=== PATIENT | male | born 1960 | race Caucasian/White ===

== ENCOUNTER 2022-05-21 08:22 | Inpatient (IN) ==
--- NOTE | 2022-04-24 10:15 | PAT Medication Instructions ---
Medication Instructions Date of Service April 24, 2022 Home Medications Medication Instructions Recorded nortriptyline 10 mg capsule 20 mg PO HS #180 caps 03/04/22 tramadol 50 mg tablet 50 mg PO TID #90 tabs 04/18/22 Medical Marijuana 1 dose PO HS PRN Pain acetaminophen 500 mg tablet 500 mg PO Q6H PRN Pain cholecalciferol (vitamin D3) 25 mcg (1,000 unit) tablet (Vitamin D3) 25 mcg PO QAM gabapentin 300 mg capsule 300 mg PO TID melatonin 10 mg tablet 10 mg PO HS diclofenac sodium 1 % topical gel (Voltaren Arthritis Pain) 2 g topical QID nortriptyline 10 mg capsule 20 mg PO HS tramadol 50 mg tablet 50 mg PO TID meloxicam 7.5 mg tablet 7.5 mg PO QAM ASK your surgeon for instructions diclofenac sodium 1 % topical gel (Voltaren Arthritis Pain) 2 g topical QID meloxicam 7.5 mg tablet 7.5 mg PO QAM ASK your prescriber and surgeon nortriptyline 10 mg capsule 20 mg PO HS DO NOT take the morning of surgery cholecalciferol (vitamin D3) 25 mcg (1,000 unit) tablet (Vitamin D3) 25 mcg PO QAM Take morning of surgery With a small sip of water, OTHERWISE NOTHING TO EAT OR DRINK AFTER MIDNIGHT: acetaminophen 500 mg tablet 500 mg PO Q6H PRN Pain (if needed) gabapentin 300 mg capsule 300 mg PO TID tramadol 50 mg tablet 50 mg PO TID Take evening before surgery Medical Marijuana 1 dose PO HS PRN Pain (if needed) acetaminophen 500 mg tablet 500 mg PO Q6H PRN Pain (if needed) gabapentin 300 mg capsule 300 mg PO TID melatonin 10 mg tablet 10 mg PO HS tramadol 50 mg tablet 50 mg PO TID Other Notes If you have any questions please call us at [phone] or [phone] or [phone] or [phone]
--- NOTE | 2022-05-02 15:16 | Anesthesiology Consultation ---
Date of Service May 02, 2022 Assessment & Plan (1) Encounter for pre-operative examination: - COVID screening: Per assessment on 05/02: No known COVID-19 positive contacts or current COVID-19 related symptoms. Travel screen negative. Patient vaccinated. At surgeon discretion if preop Covid testing being done. - Patient acceptable risk for surgery pending surgeon-ordered PCP preop evaluation ([facility], appt 05/13). Chart Review Chart Review: Patient seen in Pre Admission Testing Teaching & Discussion Pre-Anesthesia Teaching/Discussion Notes: Instructed NPO after midnight before surgery,except medications with 15 cc of water. Medication instructions provided according to the PAT guidelines. History Surgery Operation Date: 05/21/22 07:45 Proposed Procedures p L3-L4 Decompression and Fusion, L5-S1 Hardware Removal with Attachment to T1 Hardware Spinal Cord Monitoring - Raji Mock, Height/Weight Height: 5 ft 2 in Weight: 58.3 kg Allergies Allergy/AdvReac Type Severity Reaction Status Date / Time cat dander Allergy Unknown Sneezing Verified 05/02/22 15:16 No Known Drug Allergies Allergy Unknown Verified 04/23/22 13:31 DOGS Allergy Unknown Sneezing, Uncoded 05/02/22 15:16 eye watering Medications Home Medications Medication Instructions Recorded Confirmed Last Taken Medical Marijuana 1 dose PO HS PRN Pain 02/08/21 04/23/22 02/13/21 acetaminophen 500 mg tablet 500 mg PO Q6H PRN Pain 02/08/21 04/23/22 02/13/21 cholecalciferol (vitamin D3) 25 25 mcg PO QAM 02/08/21 04/23/22 02/13/21 mcg (1,000 unit) tablet (Vitamin D3) gabapentin 300 mg capsule 300 mg PO TID 02/08/21 04/23/22 02/14/21 06:30 melatonin 10 mg tablet 10 mg PO HS 02/08/21 04/23/22 02/13/21 diclofenac sodium 1 % topical gel 2 g topical QID 02/18/22 04/23/22 Unknown (Voltaren Arthritis Pain) nortriptyline 10 mg capsule 20 mg PO HS #180 caps 03/04/22 04/23/22 Unknown tramadol 50 mg tablet 50 mg PO TID #90 tabs 04/18/22 04/23/22 Unknown meloxicam 7.5 mg tablet 7.5 mg PO QAM 04/23/22 04/23/22 Unknown Past Medical History Medical History Chronic back pain Lumbar stenosis Spondylolysis Exercise / Class Metabolic Activity II 4-5 Yardwork/Stairs/Walk up hill (one FS (no CP, no SOB)) Past Family History Family History Father Prostate cancer Diabetes Mother Heart disease Brother Myocardial infarction Denies family history of Breast cancer Lung cancer Colorectal cancer Past Surgical History Surgical History History of bunionectomy of left great toe History of colonoscopy History of joint replacement left middle finger History of lumbar spinal fusion L1-L2, L5-S1 History of thoracic spinal fusion History of tooth extraction History of total hip arthroplasty x2 right, x4 left Hx of LASIK Past Anesthesia History No Hx of Anesthesia Complications and No Family Hx of Anesthesia Complications History of PONV No Hx of PONV and No Hx of Motion Sickness Social History Smoking Status: Never smoker Do You Dip or Chew Tobacco: No Hx Alcohol Use: Yes Alcohol type: beer alcohol intake frequency: 3 or more drinks per day (3-4 beers/day (evening)) Hx Substance Use: Yes substance use type: marijuana (Medical marijuana (no recent use)) Review of Systems Rare, intermittent episodes of "tachycardia, heart racing" - noted for the past several years. No recent issues/changes. Patient denies chest pain, shortness of breath, dyspnea on exertion, fever, chills, cough, wheezing. Physical Exam Vital Signs VITALS BP 130/83 P 98 TEMP 98.1 SP02 99%RA RESP 18 PHYSICAL Full cervical extension range of motion. Full TMJ range of motion. TMD 3.5 finger breaths Mallampati Score 2 Dentition: intact, upper front caps Lungs: clear throughout to auscultation Cardiac: regular rate and rhythm, no murmurs noted Spine: normal Carotid arteries: negative bruit Extremities: no edema Short neck Lab Results Anesthesia Preop Results Results Anesthesia Widget: WBC 5.02 K/ul (4.8-10.8) 05/02/22 Hgb 13.6 g/dl (14.0-18.0) L 05/02/22 Hct 40.2 % (40.1-51.0) 05/02/22 Plt 317 K/uL (130-400) 05/02/22 Na 136 mmol/L (136-145) 05/02/22 K 4.4 mmol/L (3.5-5.1) 05/02/22 Cl 103 mmol/L (98-107) 05/02/22 CO2 28 mmol/L (21-32) 05/02/22 BUN 17 mg/dl (6-23) 05/02/22 Creat 0.93 mg/dl (0.6-1.4) 05/02/22 Glucose Level 91 mg/dl (70-99(Fasting)) 05/02/22 PT 10.3 Seconds (9.0-12.0) 05/02/22 PTT 30.0 Seconds (21.0-31.0) 05/02/22 INR 1.0 (0.9-1.1) 05/02/22 Urine Color Yellow 05/02/22 Urine Appearance Clear (Clear) 05/02/22 Urine pH 6.0 (4.5-7.5) 05/02/22 Urine Specific [place] 1.013 (1.000-1.030) 05/02/22 Urine Protein Negative (Negative) 05/02/22 Urine Glucose (UA) Negative (Negative) 05/02/22 Urine Ketones Negative (Negative) 05/02/22 Urine Blood Negative (Negative) 05/02/22 Urine Nitrite Negative (Negative) 05/02/22 Urine Bilirubin Negative (Negative) 05/02/22 Urine Urobilinogen Negative (Negative) 05/02/22 Urine Leukocyte Esterase Negative (Negative) 05/02/22 Blood Type A Positive 05/02/22 Antibody Screen NEGATIVE 05/02/22 Testing Electrocardiogram Date: 05/02/22 NSR at 94bpm. Chest X-Ray Date: 05/02/22 FINDINGS: Posterior fixation hardware is seen in the thoracolumbar spine. The c ardiomediastinal silhouette is normal. The lungs are clear. No evidence of pleural effusion or pneumothorax. IMPRESSION: No acute chest disease. COVID-19 Risk Screen Screening Information COVID-19 Screen Date: 05/02/22 Exposure 21 Days Family/Household +COVID Last 21 Days: No Exposure 10 Days Any COVID Exposure Last 10 Days: No Symptoms Last 10 Days Experienced COVID Sx Last 10 Days: No + COVID 0-90 Days COVID + in Last 0-90 Days: No
[~2022-05-21 08:22] MED LIST: ACETAMINOPHEN 500 MG TAB PO SCH; CeleBREX 200 MG CAP PO SCH; GABAPENTIN 600 MG DOSE PO SCH; LR 15ML/HR IV SCH; SUGAMMADEX SODIUM 200 MG/2 ML VIAL IV ONE; ceFAZolin 2000MG 2,000 MG/15 ML SYR IV SCH
[2022-05-21] MEDS ORDERED: MIDAZOLAM HCL 1 MG/ML 2ML VIAL ONE (09:00)
[2022-05-21] MEDS ORDERED: fentaNYL citrate 100 MCG/2 ML VIAL ONE (09:00)
[2022-05-21] MEDS ORDERED: LIDOCAINE 2% MPF LOCAL 5 ML VIAL INFIL ONE (09:01)
[2022-05-21] MEDS ORDERED: ROCURONIUM BROMIDE 10 MG/ML 5 ML VIAL IV ONE ×6 (09:01→12:05)
[2022-05-21] MEDS ORDERED: LARYING-O-JET KIT (LTA) ONE (09:01)
[2022-05-21] MEDS ORDERED: PROPOFOL IV EMULSION 10 MG/ML 20 ML VIAL IV ONE (09:01)
[2022-05-21] MEDS ORDERED: HYDROmorphone INJ 2 MG/ML SYR/VIAL IV PRN (09:08)
[2022-05-21] MEDS ORDERED: fentaNYL citrate 100 MCG/2 ML VIAL IV PRN (09:08)
[2022-05-21] MEDS ORDERED: ePHEDrine sulfate 50 MG/ML AMP IV PRN (09:08)
[2022-05-21] MEDS ORDERED: ATROPINE SULFATE 0.1 MG/ML 10ML SYR IV PRN (09:08)
[2022-05-21] MEDS ORDERED: ONDANSETRON INJ 2 MG/ML 2 ML VIAL IV PRN ×2 (09:08→14:15)
[2022-05-21] MEDS ORDERED: KETAMINE 50 MG/5 ML SYRINGE ONE (09:17)
--- NOTE | 2022-05-21 09:30 | History & Physical Bridge Note ---
Date of Service May 21, 2022 History & Physical Bridge Note I have examined the patient, reviewed the History & Physical and in the interval since the performance of the History & Physical I have noted the following changes of clinical significance: no changes noted
--- NOTE | 2022-05-21 09:32 | History & Physical Report ---
Date of Service May 21, 2022 Assessment & Plan (1) Chronic back pain: Plan: L3-L4 decompression and fusion, L5-S1 hardware removal, possible L4-L5 History of Present Illness Chief Complaint: Chronic back pain Primary Care Provider: YVAN Servin 62-year-old male presents with current persistent back pain after failing course of nonoperative care is here for surgical invention. Allergies Allergy/AdvReac Type Severity Reaction Status Date / Time cat dander Allergy Unknown Sneezing Verified 05/21/22 08:40 No Known Drug Allergies Allergy Unknown Verified 05/21/22 08:40 DOGS Allergy Unknown Sneezing, Uncoded 05/21/22 08:40 eye watering Home Medications Medication Instructions Recorded Confirmed Type Medical Marijuana 1 dose PO HS PRN Pain 02/08/21 05/21/22 History acetaminophen 500 mg tablet 500 mg PO Q6H PRN Pain 02/08/21 05/21/22 History cholecalciferol (vitamin D3) 25 25 mcg PO QAM 02/08/21 05/21/22 History mcg (1,000 unit) tablet (Vitamin D3) gabapentin 300 mg capsule 300 mg PO TID 02/08/21 05/21/22 History melatonin 10 mg tablet 10 mg PO HS 02/08/21 05/21/22 History diclofenac sodium 1 % topical gel 2 g topical QID 02/18/22 05/21/22 History (Voltaren Arthritis Pain) nortriptyline 10 mg capsule 20 mg PO HS #180 caps 03/04/22 05/21/22 Rx meloxicam 7.5 mg tablet 7.5 mg PO QAM 04/23/22 05/21/22 History tramadol 50 mg tablet 50 mg PO TID #90 tabs 05/15/22 05/21/22 Rx Past Med/Surg History Medical History Chronic back pain Lumbar stenosis Spondylolysis Surgical History History of bunionectomy of left great toe History of colonoscopy History of joint replacement History of lumbar spinal fusion History of thoracic spinal fusion History of tooth extraction History of total hip arthroplasty Hx of ALBERTO Family History Father Prostate cancer Diabetes Mother Heart disease Brother Myocardial infarction Denies family history of Breast cancer Lung cancer Colorectal cancer Social History Smoking Status: Never smoker Second Hand Exposure: No; Do You Dip or Chew Tobacco: No; Hx Alcohol Use: Yes Alcohol type: beer Hx Substance Use: Yes Substance Use Type Other:: has card, for HS Preferred Language: Pashto Communication Ability: Effective International Nurse Required: No Beliefs That Will Affect Care: None marital status: Current Living Situation: Spouse current occupational status: retired How many Children do You have: 2 Other Information That Helps Us Care for You: No Feels Safe at Home: Yes Safety Concerns: Feels Safe At This Time Childhood Exposure to Second-Hand Smoke: No caffeine: Yes Dental Care, Regularly: Yes Physical Activity Frequency: Does not Exercise Seatbelt Use: always Sunscreen Use: Yes Assistive Devices: None Physical Exam Physical Exam: Patient is alert and oriented Heart regular rhythm Lungs clear Results & Data Results & Data ([facility]) Vital Signs (Past 12 Hours) Vital Signs Temp Pulse Resp BP Pulse Ox O2 Del Method 05/21/22 08:43 36.8 C 80 20 142/92 H 98 Room Air
[2022-05-21] MEDS ORDERED: ceFAZolin 330 MG/ML 1 GM VIAL ONE (09:43)
[2022-05-21] MEDS ORDERED: BUPIVACAINE/EPINEPHRINE 0.25% 1:200,000 30 ML VIAL ONE (09:43)
[2022-05-21] MEDS ORDERED: ePHEDrine sulfate 50 MG/ML AMP ONE (09:48)
[2022-05-21] MEDS ORDERED: SODIUM CHLORIDE 0.9% INJ 10 ML VIAL ONE (09:48)
[2022-05-21] MEDS ORDERED: ALBUMIN HUMAN 5% 12.5 GM/250 ML VIAL IV ONE (10:14)
[2022-05-21] MEDS ORDERED: HYDROmorphone INJ 2 MG/ML SYR/VIAL ONE (10:49)
[2022-05-21] MEDS ORDERED: PHENYLEPHRINE HCL 10 MG/ML VIAL ONE ×2 (10:49→12:05)
[2022-05-21] MEDS ORDERED: VASOPRESSIN 20 UNIT/ML VIAL ONE (11:39)
[2022-05-21] MEDS ORDERED: KETOROLAC 30 MG/ML VIAL ONE (12:43)
[2022-05-21] MEDS ORDERED: ONDANSETRON INJ 2 MG/ML 2 ML VIAL ONE ×2 (12:44)
[2022-05-21] MEDS ORDERED: DEXAMETHASONE SOD INJ 4 MG/ML VIAL ONE (12:44)
[2022-05-21] MEDS ORDERED: FLOSEAL HEMOSTATIC MATRIX 10ML TOP ONE (12:48)
--- NOTE | 2022-05-21 12:54 | Operative Report ---
Post Operative Report Pre & Post Diagnosis Operation Date: 05/21/22 10:05 Pre-Op Diagnosis: Spinal Stenosis, Lumbar Region with Neurogenic Claudication Post-Op Diagnosis: Spinal Stenosis, Lumbar Region with Neurogenic Claudication I identified the patient and participated in the time-out.: Yes Procedure Operation Date: 05/21/22 10:05 Actual Procedures #1 removal of posterior instrumentation pedicle screws at L2 L5 and S1. #2 exploration of fusion L2-L3 and L5-S1. #3 lumbar decompression bilateral medial facetectomies and foraminotomies L3-L4 and L4-L5. #4 posterior spinal fusion L3-L4 L4-L5 #5 placement posterior instrumentation L3-S1 including connectors. #6 interbody fusion L3-L4 L4-L5. #7 placement of Spira 12 x 26 mm cage at L3-L4 and 14 x 26 mm cage at L4-5. #8 placement locally harvested morselized autograft in the posterior gutters. #9 placement infuse collagen sponge, V toss in the posterior gutters and I factor in the body space. Surgeon Raji Mock, Canal Boat [employer] Michelle Cross Estimated Blood Loss 450 Findings Consistent with Post-Op Diagnosis Specimens None Indications This is a 8-year-old male known to me the presents above-mentioned diagnosis after failed course of nonoperative care is here for surgical invention. Description of Procedure Patient was met with identified informed consent obtained. Patient was then taken to the operative suite underwent patient placed in a prone position the [facility] top Ruben frame. All bony prominences well-padded eyes inspected to ensure no external pressure placed upon them. This point the lumbar spine was prepped and draped no sterile fashion. Sharp dissection with assistance of Bovie cautery from down to and exposing the rods at L2-L3 lamina and transverse processes of L3-L4 and instrumentation L5-S1 bilaterally. Then proceeded move the hardware bilaterally L5-S1 explore the fusion mass noting it to be mature and intact. He also removed the pedicle screw of L3 bilaterally explore the fusion mass at L2-L3 bilaterally noting it to be intact. Then performed a complete laminectomy of L4 and L3 including bilateral medial facetectomies and foraminotomies addressing severe spinal stenosis. Pedicle screws then placed in L4-L5 and S1 levels and a ana placed connected to the superior construct with connectors. By way of a transfemoral approach and right complete discectomy of L4-L5 was then performed endplates curetted to subcortical bleeding bone and a 14 x 26 mm spiral cage with I factor tapped in position. Then proceeded L3-L4 and again by way of a transforaminal approach and right complete discectomy performed endplates curetted to subcortically bone and a 12 x 26 mm spiral cage with I factor tapped in position. The rods were then locked into final position bilaterally. The transverse processes of L3-L4-L5 were then burred to subcortically bone. Infuse collagen sponge from mass graft locally harvested morselized autograft was placed in the posterior gutters. 15 round NICOLLE drain inserted. The incision was then closed with 1 Vicryl the fascia 2-0 Vicryl subcutaneously and 4 Monocryl for final skin closure. Steri-Strips dressings placed. Patient awakened taken to PACU in stable condition. Please note spinal cord monitoring was utilized at the procedure no changes noted. Lastly Michelle Cross was present out the entire surgeon while the patient positioning complex portion of the surgery and final skin closure. I attest to the content of the Intraoperative Record and any orders documented therein. Any exceptions are noted below.
--- NOTE | 2022-05-21 13:54 | Fluoroscopy Report ---
FL lumbar spine 2-3V CLINICAL HISTORY: L3-L4 DECOMPRESSION FUSION L5-S1 HW REMOVAL TECHNIQUE: 2 views were obtained with the C-arm in the OR with the above procedure. Total fluoroscopy time was 16.6 seconds. Radiation dose was 4.33 mGy. Comparison: Comparison is made to lumbar spine CT 09/21/2021 FINDINGS/IMPRESSION: Intraoperative images were obtained of L5-S1 hardware removal and discectomy and fusion of L3-L4. Please correlate with intraoperative fluoroscopy and operative report. ACT 112: Negative or not required by law. Electronically signed by: Clint Lopez M.D. 05/21/2022 1:52 PM
--- NOTE | 2022-05-21 14:02 | Anesthesiology Progress Note ---
Date of Service May 21, 2022 Anesthesia Post Procedure Vital Signs Vital Signs: Temp Pulse Pulse Resp BP Pulse Ox O2 Del Method 05/21/22 13:50 36.5 C 105 H 12 95/61 L 96 Room Air 05/21/22 13:40 101 H 18 100/66 96 Room Air 05/21/22 13:30 94 H 9 L 94/59 L 100 Oxymask 05/21/22 13:20 90 16 94/60 L 99 Oxymask 05/21/22 13:11 36.8 C 87 11 L 97/62 L 99 Oxymask 05/21/22 08:43 36.8 C 80 20 142/92 H 98 Room Air O2 Flow Rate 05/21/22 13:50 05/21/22 13:40 05/21/22 13:30 6 05/21/22 13:20 6 05/21/22 13:11 15 05/21/22 08:43 Pain Intensity Lower Medial Back: Pain Intensity: 3 Back: Pain Intensity: 2 Transfer of Care Handoff Completed per policy Notes Mental Status: alert / awake / arousable and participated in evaluation Patient Amnestic to Procedure: Yes Nausea / Vomiting: adequately controlled Pain: adequately controlled Airway Patency, RR, SpO2: stable & adequate BP & HR: stable & adequate Hydration State: stable & adequate Anesthetic Complications: no major complications apparent and Pt Satisfied with anesthetic care
[2022-05-21] MEDS ORDERED: SOD PHOSPHATE/SOD BIPHOSPHATE ENEMA 132 ML BTL PR PRN (14:15)
[2022-05-21] MEDS ORDERED: PROMETHAZINE HCL 12.5 MG in SODIUM CHLORIDE 0.9% 50 ML IV PRN (14:15)
[2022-05-21] MEDS ORDERED: DO NOT ADMINISTER PNEUMOCOCCAL VACCINE PRN (14:15)
[2022-05-21] MEDS ORDERED: ACETAMINOPHEN 1,000 MG/100 ML VIAL IV PRN (14:15)
[2022-05-21] MEDS ORDERED: hydrOXYzine HCl 25 MG TAB PO PRN (14:15)
[2022-05-21] MEDS ORDERED: METOCLOPRAMIDE HCL INJ 5 MG/ML 2 ML VIAL IV PRN (14:15)
[2022-05-21] MEDS ORDERED: HYDROmorphone INJ 1 MG/ML SYRINGE IV PRN (14:15)
[2022-05-21] MEDS ORDERED: DO NOT ADMINISTER FLU VACCINE PRN (14:15)
[2022-05-21] MEDS ORDERED: HYDROmorphone INJ 0.5 MG/0.5 ML SYR IV PRN (14:15)
[2022-05-21] MEDS ORDERED: bisacodyL 10 MG SUPP PR PRN (14:15)
[2022-05-21] MEDS ORDERED: LORazepam 0.5 MG TAB PO PRN (14:15)
[2022-05-21] MEDS ORDERED: ALUMINUM/MAGNESIUM SUSP 30 ML UDC PO PRN (14:15)
[2022-05-21] MEDS ORDERED: diphenhydrAMINE Capsule 25 MG CAP PO PRN (14:15)
[2022-05-21] MEDS ORDERED: NALOXONE HCL 0.4 MG/1 ML VIAL/CARP IV PRN (14:15)
[2022-05-21] MEDS ORDERED: MAGNESIUM HYDROXIDE SUSP 30 ML UDC PO PRN (14:15)
[2022-05-21] MEDS ORDERED: ONDANSETRON 4 MG OD TAB PO PRN (14:15)
[2022-05-21] MEDS ORDERED: FAMOTIDINE 20 MG TAB PO PRN (14:15)
[2022-05-21] MEDS ORDERED: LORazepam 2 MG/1 ML VIAL IV PRN ×2 (14:15→15:34)
[2022-05-21] MEDS: LACTATED RINGER'S 1,000 ML IV SCH ×3 (14:35→23:48)
--- NOTE | 2022-05-21 15:14 | Hospitalist Consultation ---
Date of Consultation May 21, 2022 Assessment & Plan (1) S/P lumbar spinal fusion: -Patient is currently afebrile, hemodynamically stable, and stable on RA -Pain control, perioperative abx, IV fluids, and DVT PPX per the primary team -Patient currently in mod-severe pain at the time of the consult, spoke to his nurse after evaluating the patient to ask them to give him ordered pain regimen -Switched prn famotidine to scheduled for stress ulcer prophylaxis -Agree with AM CBC and BMP (2) Tachycardia: -Patient noted to be tachycardic with HR in the low 100's at the time of the consult, blood pressure is currently stable at 102/65 -Patient is asymptomatic and notes a history of SVT but has never needed medication prior, patient also drinks at least 2-3 beers nightly, last drink was last night around 9-10 pm, could be a component of alcohol withdrawal -Did take his home gabapentin and tramadol this am so less liekly to be withdrawal from his chronic meds -Patient was noted to have an EBL of 450 cc so could be related to blood loss and soft BP's post op and also could be related to his current pain rating -Obtaining STAT CBC, CMP, and ECG for further evaluation -Upgraded the patient to med/tele for closer monitoring, will follow-up when available and monitor his HR when is pain is better controlled -He does not examine as volume overloaded, agree with continuing LR at 100 mL/hr for now (3) Alcohol use: -Reports 2-3 beers nighty and no history of withdrawal per the patient -Will start the at risk AWSS protocol to monitor for and treat any possible alcohol withdrawal at this time -Continue to monitor on tele Plan The patient was discussed with Dr. Moon at the time of the consult Supervising Physician Co-Signing Physician Notes Patient seen and examined, chart reviewed, case discussed with Miah Jean PA-C and I agree with the assessment and plan as above except as otherwise noted Labs and images reviewed Patient seen at bedside. Feels well, but does endorse that he is having intermittent pain in his low back which has been improved with oxycodone but worsens prior to dosing up to a 7/10. At time of bedside assessment feels it is tolerable, but worse as he just got oxycodone and has not yet kicked in. Does not feel a fast heart rate. Has had a history of SVT which she has been able to self terminate by holding breath. 2-3 drinks per night, last drink yesterday. Skin is warm and dry, is not diaphoretic. Agree with following for AWSS, was [id number] cc LR fluid bolus challenge and continued on maintenance fluids. Tachycardia most likely reactive, DDx includes withdrawal, blood loss, and pain. Suspect is reactive to pain with mild hypovolemia, will mucous membranes are tacky but not cracked. Agree with recommendations of management above. Lungs are clear to auscultation, no evidence of volume overload History of Present Illness Reason for Consultation: Post-op medical management Requesting Physician: Raji Mock DO Attending Physician: Dr. Ed Moon History of Present Illness Stevan is a 62 year old male with a PMH significant for chronic back pain with chronic back pain, multiple previous spinal procedures, and SVT who presented to the [facility] OR on 05/21/22 for scheduled L3-L4 decompensation and fusion and L5-S1 hardware removal with Dr. Mock. Per the operative report, EBL was listed as 450 cc, anesthesia and intra-operative complications were not listed in the report. Review of vitals signs since arrival this am shows blood pressures with systolics in the 90's but most recently a BP of 102/65. The patient has been noted to be tachycardic with heart rates in the low 100's, he has been afebrile, and stable on RA. No labs were available prior to the consult. At the time of the exam the patient was lying in bed and states that his back pain is "bad", he currently rates it as a 6-7/10. He denies any other complaints at this time including fever, chills, headache, changes in vision, hearing, taste, and smell, chest pain, SOB, abdominal pain, nausea, vomiting, and numbness in the lower extremities. When asked, he confirms that he has a history of intermittent SVT, he states that he was never start on medication due to it being intermittent and not severe. He does not use tobacco products but does drink 2-3 beers nightly, he denies previous history of withdrawal when he stops drinking, his last drink was last night around 9-10 pm. He did take his am Gabapentin and tramadol prior to coming to the Hospital. Please refer to Dr. Moon's attestation for any changes to the treatment plan. Allergies Allergy/AdvReac Type Severity Reaction Status Date / Time cat dander Allergy Unknown Sneezing Verified 05/21/22 08:40 No Known Drug Allergies Allergy Unknown Verified 05/21/22 08:40 DOGS Allergy Unknown Sneezing, Uncoded 05/21/22 08:40 eye watering Home Medications Medication Instructions Recorded Confirmed Type Medical Marijuana 1 dose PO HS PRN Pain 02/08/21 05/21/22 History acetaminophen 500 mg tablet 500 mg PO Q6H PRN Pain 02/08/21 05/21/22 History cholecalciferol (vitamin D3) 25 25 mcg PO QAM 02/08/21 05/21/22 History mcg (1,000 unit) tablet (Vitamin D3) gabapentin 300 mg capsule 300 mg PO TID 02/08/21 05/21/22 History melatonin 10 mg tablet 10 mg PO HS 02/08/21 05/21/22 History diclofenac sodium 1 % topical gel 2 g topical QID 02/18/22 05/21/22 History (Voltaren Arthritis Pain) nortriptyline 10 mg capsule 20 mg PO HS #180 caps 03/04/22 05/21/22 Rx meloxicam 7.5 mg tablet 7.5 mg PO QAM 04/23/22 05/21/22 History tramadol 50 mg tablet 50 mg PO TID #90 tabs 05/15/22 05/21/22 Rx oxycodone 5 mg tablet 5 mg PO Q6H PRN pain, severe #30 05/21/22 Rx tabs tramadol 50 mg tablet 50 mg PO Q6H PRN pain, moderate 05/21/22 Rx #30 tabs Patient History Medical History Chronic back pain Lumbar stenosis Spondylolysis Surgical History History of bunionectomy of left great toe History of colonoscopy History of joint replacement History of lumbar spinal fusion History of thoracic spinal fusion History of tooth extraction History of total hip arthroplasty Hx of ALBERTO Family History Father Prostate cancer Diabetes Mother Heart disease Brother Myocardial infarction Denies family history of Breast cancer Lung cancer Colorectal cancer Social History Smoking Status: Never smoker Second Hand Exposure: No; Do You Dip or Chew Tobacco: No; Hx Alcohol Use: Yes Alcohol type: beer Hx Substance Use: Yes Substance Use Type Other:: has card, for HS Preferred Language: Icelandic Communication Ability: Effective Air Traffic Systems Technician Required: No Beliefs That Will Affect Care: None marital status: Current Living Situation: Spouse current occupational status: retired How many Children do You have: 2 Other Information That Helps Us Care for You: No Feels Safe at Home: Yes Safety Concerns: Feels Safe At This Time Childhood Exposure to Second-Hand Smoke: No caffeine: Yes Dental Care, Regularly: Yes Physical Activity Frequency: Does not Exercise Seatbelt Use: always Sunscreen Use: Yes Assistive Devices: None Review of Systems Review of Systems: Denies current fever, chills, headache, changes in vision, hearing, taste, and smell, chest pain, SOB, cough, abdominal pain, nausea, vomiting, diarrhea, hematemesis, melena, dysuria, hematuria, and recent falls. All systems have been reviewed and are otherwise negative. Physical Exam Physical Exam: Physical Exam: General: In moderate distress due to low back pain, stated age, well- nourished, good hygiene HEENT: Normocephalic, atraumatic, no scleral icterus, pupils around round, symmetrical, and reactive to light, moist mucus membranes, trachea midline, no thyromegaly Chest/Pulm: No respiratory distress, symmetrical chest expansion, clear breath sounds throughout Cardiac: tachycardic rate, regular rhythm, no murmurs noted Abdomen: Negative for ascites and bruising, normoactive bowel sounds, soft, non-tender to palpation throughout Musculoskeletal: Patient currently with drain in place from the low back surgical site without signs of infection, Symmetrical and without signs of acute trauma, upper and lower extremities with full ROM, no atrophy, spasticity, or flaccidity Extremities: Radial, dorsalis pedis, and posterior tibial pulses are intact and symmetrical, no edema noted in the BL LE's Skin: Warm, dry, no rashes , lesions, or scars noted Neuro: Alert and oriented to person, place, month, year, and president, no focal defects, CN II-XII tested and intact, finger to nose test negative, no tremors noted Psych: Mild distress due to back pain, calm and cooperative during the exam Results & Data Results & Data ([facility]) Vital Signs (Past 12 Hours) Vital Signs Temp Pulse Pulse Resp BP Pulse Ox O2 Del Method 05/21/22 14:36 36.4 C L 101 H 14 116/66 96 Room Air 05/21/22 14:10 36.2 C L 109 H 14 99/56 L 95 Room Air 05/21/22 14:00 36.5 C 106 H 15 99/63 L 94 Room Air 05/21/22 13:50 105 H 12 95/61 L 96 Room Air 05/21/22 13:40 101 H 18 100/66 96 Room Air 05/21/22 13:30 94 H 9 L 94/59 L 100 Oxymask 05/21/22 13:20 90 16 94/60 L 99 Oxymask 05/21/22 13:11 36.8 C 87 11 L 97/62 L 99 Oxymask 05/21/22 08:43 36.8 C 80 20 142/92 H 98 Room Air O2 Flow Rate 05/21/22 14:36 05/21/22 14:10 05/21/22 14:00 05/21/22 13:50 05/21/22 13:40 05/21/22 13:30 6 05/21/22 13:20 6 05/21/22 13:11 15 05/21/22 08:43 ECG Additional Comments: Obtaining STAT ECG at the time of the consult PG Care Time/CCT Total # of Minutes Spent Total Time Spent with Patient: Total time spent is greater than 50% in coordination of care (as documented) at patient's floor/unit and/or counseling patient: Coding Level of Care Code Established Pt INP/OBS CONSULT LVL 5, 80 MIN Patient Type Established Medical Decision Making High Complexity Diagnoses S/P lumbar spinal fusion Z98.1 Tachycardia R00.0 Alcohol use Z78.9
[2022-05-21 15:55] LABS: Hematocrit (blood only) 32.1 % (40.1-51.0); Hemoglobin 10.8 g/dl (14.0-18.0); Mean Corpuscular Hemoglobin 31.1 pg (25.0-34.0); Mean Corpuscular Hgb Conc 33.6 g/dL (32.0-36.0); Mean Corpuscular Volume 92.5 fL (80.0-100.0); Platelet Count 223 K/uL (130-400); RDW Coefficient of Variation 12.8 % (11.5-14.5); RDW Standard Deviation 43.6 fL (36.4-46.3); Red Blood Count 3.47 M/uL (4.63-6.08); White Blood Count 10.07 K/ul (4.8-10.8)
[2022-05-21 16:02] LABS: Albumin Globulin Ratio 2.5 (0.9-2); Albumin Level 3.7 gm/dl (3.4-5.0); BUN Creatinine Ratio 15.6 (10-20); Bilirubin,Total 0.4 mg/dl (0.2-1.0); Calcium 8.3 mg/dl (8.5-10.1); Creatinine Clr Calc Pharmacy 78.8 ml/min; Est GFR (African American) 114.3 ml/min; Est GFR (Non-African American) 98.6 ml/min; Globulin 1.5 gm/dl (2.5-4.0); Potassium 4.3 mmol/L (3.5-5.1); Total Protein 5.2 gm/dl (6.0-8.3)
[2022-05-21] MEDS: GABAPENTIN 300 MG CAP PO SCH ×2 (16:10→20:01)
[2022-05-21 16:14] LABS: Basophils # (auto) 0.01 K/uL (0-0.2); Basophils % (auto) 0.1 %; Immature Granulocytes # (auto) 0.05 K/uL (0.00-0.02); Immature Granulocytes % (auto) 0.5 %; Lymphocytes # (auto) 0.29 K/uL (1.2-3.4); Lymphocytes % (auto) 2.9 %; Monocytes # (auto) 0.14 K/uL (0.24-0.82); Monocytes % (auto) 1.4 %; Neutrophils # (auto) 9.58 K/uL (1.4-6.5); Neutrophils % (auto) 95.1 %
[2022-05-21] MEDS: ceFAZolin 1000MG 1,000 MG/7.5 ML SYR IV SCH (17:50)
[2022-05-21] MEDS: FAMOTIDINE 20 MG TAB PO SCH (17:50)
--- NOTE | 2022-05-21 18:31 | Electrocardiogram Report ---
Test Reason : Blood Pressure : / mmHG Vent. Rate : 103 BPM Atrial Rate : 103 BPM P-R Int : 158 ms QRS Dur : 080 ms QT Int : 338 ms P-R-T Axes : 076 086 050 degrees QTc Int : 442 ms Sinus tachycardia Minimal voltage criteria for LVH, may be normal variant Borderline ECG When compared with ECG of 02-MAY-2022 15:37, No significant change was found Confirmed by Blas Schaeffer ([id number]) on 05/21/2022 6:30:37 PM Referred By: Raji Mock Confirmed By:Kurtis Schaeffer
[2022-05-21] MEDS: oxyCODONE HCL IR 5 MG TAB (IMMEDIATE RELEASE) PO PRN ×2 (19:48→23:47)
[2022-05-21] MEDS ORDERED: LACTATED RINGER'S 250 ML IV ONE (19:53)
[2022-05-21] MEDS: NORTRIPTYLINE HCL 10 MG CAP PO SCH (20:00)
[2022-05-21] MEDS: DOCUSATE SODIUM/SENNA 50/8.6MG TAB PO SCH (20:01)
[2022-05-21] MEDS: MELATONIN 3 MG TAB PO SCH (23:08)
[2022-05-22] MEDS ORDERED: LACTATED RINGER'S 1,000 ML IV ONE (01:37)
[2022-05-22] MEDS: ceFAZolin 1000MG 1,000 MG/7.5 ML SYR IV SCH (02:00)
[2022-05-22] MEDS: FAMOTIDINE 20 MG TAB PO SCH ×2 (05:10→17:24)
[2022-05-22] MEDS: POLYETHYLENE (MIRALAX) 17 GM PACK PO SCH ×3 (05:10→17:25)
[2022-05-22] MEDS: ACETAMINOPHEN 500 MG TAB PO PRN ×2 (05:30→15:21)
--- NOTE | 2022-05-22 08:04 | Hospitalist Progress Note ---
Date of Service May 22, 2022 Assessment & Plan (1) S/P lumbar spinal fusion: Plan: POD# 1 s/p #1 removal of posterior instrumentation pedicle screws at L2 L5 and S1. #2 exploration of fusion L2-L3 and L5-S1. #3 lumbar decompression bilateral medial facetectomies and foraminotomies L3-L4 and L4-L5. #4 posterior spinal fusion L3-L4 L4-L5 #5 placement posterior instrumentation L3-S1 including connectors. #6 interbody fusion L3-L4 L4-L5. #7 placement of Spira 12 x 26 mm cage at L3-L4 and 14 x 26 mm cage at L4-5. #8 placement locally harvested morselized autograft in the posterior gutters. #9 placement infuse collagen sponge, V toss in the posterior gutters and I factor in the body space. EBL 450cc NICOLLE output 495 + 160cc H/h 13.6/40.2 --> 10.8/32.1 post-op last evening Remains on IVF through this morning -- hgb 01/21, NICOLLE output slowed. No CP/palpitations Acute blood loss anemia from surgery as well as aspect of dilutional from IVF Pain control/bowel regimen/PT/OT per primary service DVT proph- SCDs Patient ambulating w/ PT and wanting to go home if possible -- discussed with Dr Mock and he plans on monitoring NICOLLE drainage and hopeful d/c tomorrow (2) Tachycardia: Plan: Patient noted to be tachycardic with HR in the low 100's at the time of the consult, blood pressure is currently stable at 102/65 Patient is asymptomatic and notes a history of SVT but has never needed medication prior, patient also drinks at least 2-3 beers nightly, last drink was around 9-10 pm 05/20, could be a component of alcohol withdrawal vs pain control EKG sinus tach, no change compared to pre-op EKG Home gabapentin and tramadol ordered Asked RN to provide dose of oxycodone for pain control No CP/palpitations NSR/sinus tach on monitor AWSS protocol ordered, no evidence for DTs currently Could be component of blood loss contributing as well as pain, AND DECADRON ordered by primary service on pepcid for reflux precautions Rec f/u w/ PCP if HR elevations outpatient rec starting medication Also recommended cessation of alcohol -check CBC again in AM (3) Alcohol use: Plan: Reports 2-3 beers nighty and no history of withdrawal per the patient -Will start the at risk AWSS protocol to monitor for and treat any possible alcohol withdrawal at this time Monitoring on tele Added PO B12/B1/folate empirically -- consider vitamins at d/c (4) Anemia: Plan: With preop anemia, normocytic With h/o EtOH daily use Too late to check B12 and folate as supplementation already started here but could have mixed deficiency of iron and B12/folate-will check Fe studies in AM Also no TSH in system-recommend checking given h/o SVT and anemia Plan Thank you for allowing hospitalist service to participate in the care of Mr Parra. Case discussed with Dr Mock and plans for monitoring overnight and NICOLLE output and discharge tomorrow. Hospitalist service will follow along to check labs in AM Please call with any questions/concerns. Admission and Anticipated Discharge Date Admission Date: May 21, 2022 Supervising Physician Co-Signing Physician Notes PA Supervision Note: I did not personally see or examine the patient today, but I verified all martin points of LISA Palumbo's assessment and plan with the following exceptions/additions: Addendum made to note as above Subjective Patient evaluated this morning, passing lots of gas not yet having BM. States pain much better than prior procedure, however reporting decent pain and has only been getting Tylenol. Asked RN to administer dose of oxycodone - HRs improved w/ pain control. Just finished working with PT, rates 104 w/ ambulation, currently 100 at rest getting back into chair. No chest pain/shortness of breath or palpitations. No irregularity on telemetry. Drinks 3-4 beers daily, has cut back couple days prior to surgery without issues reported. Review of Systems Review of Systems: All systems reviewed & are unremarkable except as noted in HPI & below Physical Exam Physical Exam: General: WD/WN male sitting up in recliner, NAD but mildly uncomfortable to back after ambulating HEENT; head normocephalic, mmm, trachea midline Resp: CTAB, no w/c/r, on room air CV: Regular rate/rhythm (100bpm), no m/r/g, no pitting edema/calf tenderness GI: +BS, nontender : garcia draining clear yellow urine MSK/Neuro: strength equal bilaterally, NVI, dressing to back c/d/i, NICOLLE w/ bloody drainage Psych: AOx3, cooperative, wanting to go home, no tremor Results & Data Results & Data ([facility]) Vital Signs (Past 12 Hours) Vital Signs Temp Pulse Pulse Resp BP Pulse Ox O2 Del Method 05/22/22 07:21 103 H 05/22/22 03:32 36.8 C 98 H 18 100/53 L 94 Room Air 05/22/22 01:39 103 H 92/51 L 05/22/22 00:45 107 H 05/21/22 22:21 36.8 C 111 H 20 102/65 92 Room Air PG Care Time/CCT Total # of Minutes Spent Total Time Spent with Patient: Total time spent is greater than 50% in coordination of care (as documented) at patient's floor/unit and/or counseling patient: Coding Level of Care Code 17310 SUB INP/OBS CARE 2/35MIN Diagnoses S/P lumbar spinal fusion Z98.1 Tachycardia R00.0 Alcohol use Z78.9 Anemia D64.9
[2022-05-22 11:19] LABS: Basophils # (auto) 0.01 K/uL (0-0.2); Basophils % (auto) 0.1 %; Eosinophils # (auto) 0.02 K/uL (0-0.50); Eosinophils % (auto) 0.2 %; Hematocrit (blood only) 26.1 % (40.1-51.0); Immature Granulocytes # (auto) 0.03 K/uL (0.00-0.02); Immature Granulocytes % (auto) 0.3 %; Lymphocytes # (auto) 1.24 K/uL (1.2-3.4); Lymphocytes % (auto) 14.1 %; Mean Corpuscular Hemoglobin 31.4 pg (25.0-34.0); Mean Corpuscular Hgb Conc 34.5 g/dL (32.0-36.0); Mean Corpuscular Volume 90.9 fL (80.0-100.0); Mean Platelet Volume 9.3 fL (9.4-12.4); Monocytes # (auto) 0.75 K/uL (0.24-0.82); Monocytes % (auto) 8.5 %; Neutrophils # (auto) 6.74 K/uL (1.4-6.5); Neutrophils % (auto) 76.8 %; Platelet Count 222 K/uL (130-400); RDW Coefficient of Variation 12.8 % (11.5-14.5); RDW Standard Deviation 42.8 fL (36.4-46.3); Red Blood Count 2.87 M/uL (4.63-6.08); White Blood Count 8.79 K/ul (4.8-10.8)
[2022-05-22] MEDS: CHOLECALCIFEROL 1,000 UNITS 25 MCG TAB PO SCH (11:21)
[2022-05-22] MEDS: GABAPENTIN 300 MG CAP PO SCH ×3 (11:21→20:24)
[2022-05-22] MEDS: dexAMETHasone 6 MG in SYRINGE 0 ML IV SCH (11:21)
[2022-05-22] MEDS: LACTATED RINGER'S 1,000 ML IV SCH (11:29)
[2022-05-22] MEDS: traMADol HCL 50 MG TABLET PO PRN ×2 (11:34→19:44)
[2022-05-22 11:49] LABS: BUN Creatinine Ratio 10.3 (10-20); Calcium 8.2 mg/dl (8.5-10.1); Creatinine Clr Calc Pharmacy 89.2 ml/min; Est GFR (African American) 120.3 ml/min; Est GFR (Non-African American) 103.8 ml/min; Magnesium 1.7 mg/dl (1.7-2.4); Potassium 3.6 mmol/L (3.5-5.1)
--- NOTE | 2022-05-22 12:59 | Orthopedic Progress Note ---
Date of Service May 22, 2022 Assessment & Plan (1) Lumbar stenosis with neurogenic claudication: Plan: This time we will can continue physical therapy monitor NICOLLE output depending on his medical status he may be capable discharge tomorrow afternoon if not hopefully Friday. Admission and Anticipated Discharge Date Admission Date: May 21, 2022 Subjective Back pain controlled no leg pain Physical Exam Physical Exam: Patient sitting at the bedside. He is comfortable. Is good strength testing. Results & Data ([facility]) Vital Signs (Past 12 Hours) Vital Signs Temp Pulse Pulse Resp BP Pulse Ox O2 Del Method 05/22/22 11:57 36.9 C 99 H 18 115/67 99 Room Air 05/22/22 08:24 36.8 C 109 H 18 110/68 96 Room Air 05/22/22 07:21 103 H 05/22/22 03:32 36.8 C 98 H 18 100/53 L 94 Room Air 05/22/22 01:39 103 H 92/51 L
[2022-05-22] MEDS: THIAMINE HCL 100 MG TAB PO SCH (17:24)
[2022-05-22] MEDS: CYANOCOBALAMIN (B-12) 500 MCG TABLET PO SCH (17:24)
[2022-05-22] MEDS: FOLIC ACID 400 MCG TAB PO SCH (17:25)
[2022-05-22] MEDS: DOCUSATE SODIUM/SENNA 50/8.6MG TAB PO SCH (20:23)
[2022-05-22] MEDS: MELATONIN 3 MG TAB PO SCH (20:24)
[2022-05-22] MEDS: NORTRIPTYLINE HCL 10 MG CAP PO SCH (20:24)
[2022-05-23] MEDS: ACETAMINOPHEN 500 MG TAB PO PRN ×2 (00:46→08:25)
[2022-05-23] MEDS: POLYETHYLENE (MIRALAX) 17 GM PACK PO SCH ×2 (00:47→05:34)
[2022-05-23] MEDS: FAMOTIDINE 20 MG TAB PO SCH (05:34)
[2022-05-23 07:47] LABS: BUN Creatinine Ratio 12.1 (10-20); Calcium 8.5 mg/dl (8.5-10.1); Creatinine Clr Calc Pharmacy 91.9 ml/min; Est GFR (African American) 121.8 ml/min; Est GFR (Non-African American) 105.1 ml/min; Potassium 3.9 mmol/L (3.5-5.1)
--- NOTE | 2022-05-23 07:51 | Hospitalist Progress Note ---
Date of Service May 23, 2022 Assessment & Plan Admission and Anticipated Discharge Date Admission Date: May 21, 2022 Results & Data Results & Data ([facility]) Vital Signs (Past 12 Hours) Vital Signs Temp Pulse Pulse Resp BP Pulse Ox O2 Del Method 05/23/22 07:22 36.3 C L 82 15 112/65 97 Room Air 05/23/22 04:55 36.7 C 78 18 124/70 97 Room Air 05/23/22 01:17 78 05/22/22 23:18 36.9 C 93 H 18 114/69 96 Room Air Laboratory Results 05/23/22 05/23/22 05/23/22 Range/Units 06:46 06:46 06:46 WBC Pending (4.8-10.8) K/ul RBC Pending (4.63-6.08) M/uL Hgb Pending (14.0-18.0) g/dl Hct Pending (40.1-51.0) % MCV Pending (80.0-100.0) fL MCH Pending (25.0-34.0) pg MCHC Pending (32.0-36.0) g/dL RDW Std Deviation (36.4-46.3) fL RDW Coeff of Leanne (11.5-14.5) % Plt Count Pending (130-400) K/uL MPV (9.4-12.4) fL Immature Gran % (Auto) % Neut % (Auto) % Lymph % (Auto) % Milam % (Auto) % Eos % (Auto) % Baso % (Auto) % Neut # (Auto) (1.4-6.5) K/uL Lymph # (Auto) (1.2-3.4) K/uL Milam # (Auto) (0.24-0.82) K/uL Eos # (Auto) (0-0.50) K/uL Baso # (Auto) (0-0.2) K/uL Immature Gran # (Auto) (0.00-0.02) K/uL Sodium 137 (136-145) mmol/L Potassium 3.9 (3.5-5.1) mmol/L Chloride 107 (98-107) mmol/L Carbon Dioxide 28 (21-32) mmol/L Anion Gap 2 L (3-11) BUN 8 (6-23) mg/dl Creatinine 0.66 (0.6-1.4) mg/dl Est Cr Clr Drug Dosing 91.9 ml/min Est GFR ( Amer) 121.8 ml/min Est GFR (Non-Af Amer) 105.1 ml/min BUN/Creatinine Ratio 12.1 (10-20) Glucose 98 (70-99(Fasting)) mg/dl Calcium 8.5 (8.5-10.1) mg/dl Magnesium (1.7-2.4) mg/dl Iron 39 (35-175) mcg/dl TIBC 204 L (250-450) mcg/dl Unsaturated IBC 165 (155-355) mcg/dl Transferrin % Sat 19 L (20-50) % Ferritin Pending TSH Pending 05/22/22 05/22/22 Range/Units 08:20 08:20 WBC 8.79 (4.8-10.8) K/ul RBC 2.87 L (4.63-6.08) M/uL Hgb 9.0 L (14.0-18.0) g/dl Hct 26.1 L (40.1-51.0) % MCV 90.9 (80.0-100.0) fL MCH 31.4 (25.0-34.0) pg MCHC 34.5 (32.0-36.0) g/dL RDW Std Deviation 42.8 (36.4-46.3) fL RDW Coeff of Leanne 12.8 (11.5-14.5) % Plt Count 222 (130-400) K/uL MPV 9.3 L (9.4-12.4) fL Immature Gran % (Auto) 0.3 % Neut % (Auto) 76.8 % Lymph % (Auto) 14.1 % Milam % (Auto) 8.5 % Eos % (Auto) 0.2 % Baso % (Auto) 0.1 % Neut # (Auto) 6.74 H (1.4-6.5) K/uL Lymph # (Auto) 1.24 (1.2-3.4) K/uL Milam # (Auto) 0.75 (0.24-0.82) K/uL Eos # (Auto) 0.02 (0-0.50) K/uL Baso # (Auto) 0.01 (0-0.2) K/uL Immature Gran # (Auto) 0.03 H (0.00-0.02) K/uL Sodium 138 (136-145) mmol/L Potassium 3.6 (3.5-5.1) mmol/L Chloride 107 (98-107) mmol/L Carbon Dioxide 29 (21-32) mmol/L Anion Gap 2 L (3-11) BUN 7 (6-23) mg/dl Creatinine 0.68 (0.6-1.4) mg/dl Est Cr Clr Drug Dosing 89.2 ml/min Est GFR ( Amer) 120.3 ml/min Est GFR (Non-Af Amer) 103.8 ml/min BUN/Creatinine Ratio 10.3 (10-20) Glucose 102 H (70-99(Fasting)) mg/dl Calcium 8.2 L (8.5-10.1) mg/dl Magnesium 1.7 (1.7-2.4) mg/dl Iron (35-175) mcg/dl TIBC (250-450) mcg/dl Unsaturated IBC (155-355) mcg/dl Transferrin % Sat (20-50) % Ferritin TSH PG Care Time/CCT Total # of Minutes Spent Total Time Spent with Patient: Total time spent is greater than 50% in coordination of care (as documented) at patient's floor/unit and/or counseling patient: Coding
[2022-05-23 08:07] LABS: Ferritin 62.2 ng/ml (8-388)
--- NOTE | 2022-05-23 08:34 | Discharge Summary ---
Date of Service May 23, 2022 Admission HPI Per Admitting Provider 62-year-old male presents with current persistent back pain after failing course of nonoperative care is here for surgical invention. Principal Diagnosis stenosis Discharge Data Allergies Allergy/AdvReac Type Severity Reaction Status Date / Time cat dander Allergy Unknown Sneezing Verified 05/21/22 08:40 dog dander Allergy Unknown SNEEZING, Verified 05/22/22 01:47 EYE WATERING No Known Drug Allergies Allergy Unknown Verified 05/21/22 08:40 Consultations 05/21/22 14:15 Consult Hospitalist Routine Procedures Performed Operation Date: 05/21/22 10:05 Actual Procedures p L3-L4 Decompression and Fusion, Spinal Cord Monitoring, Application of Infuse, Bone Graft, Placement of Interbody L3-L4 and L4-L5, Removal of Posterior Instrumentation Pedicle Screws at L2 L5 and S1(Not Applicable) - Raji Mock DO s L5-S1 Hardware Removal, (Not Applicable) - Raji Mock DO Ordered Studies 05/21/22 10:05 FL lumbar spine 2-3V Routine Hospital Course (1) S/P lumbar spinal fusion: Patient underwent lumbar depression fusion tolerated this well was taken to the orthopedic for postoperative. Patient tolerated procedure well was taken to the PACU postoperatively. He progressed appropriately postop day 1 and 2 NICOLLE drain decreased appropriately. Pain well controlled. Excellent strength testing. Separately discharged home. Discharge orders instructions from the chart for further review. Total Time Total Time Spent Total Time Spent (In Minutes): 20 mins Discharge Plan Discharge Items Patient Disposition: Home - Self-Care Reason For Visit: POST OP Discharge Diagnosis: Lumbar spinal stenosis with neurogenic claudication Activity: As commented below Non-emergency contact: Primary Care Provider Call non-emergency contact if: you have any medication questions Follow-up/Referrals: Herbert Martinez CRNP [Primary Care Provider] - Diet: Regular Addtl Attending Provider Instructions: ACTIVITY RECOMMENDATIONS: SELF CARE INSTRUCTIONS AFTER THORACIC/LUMBAR FUSIONS 1. You may walk to your tolerance. It is good exercise for your legs and back. Expect some back and intermittent leg aches and pains. 2. You may perform "counter-top" level activities (make a sandwich, chepe with a project, etc.). 3. No bending or lifting of more than 10 pounds or back twisting of any nature (roll like a log when turning in bed). 4. You may ride in a car for 20-30 minutes at a time. No driving until after your first visit with your doctor. 5. Frequent changes of position and restricting sitting to 30 minutes at a time will help limit the amount of back spasms and stiffness you may experience. 6. You may discontinue the use of ambulatory aids (cane, crutches, etc.) once your strength and confidence allow. 7. You may legal coordinator the shower and let water strike your incision when you arrive home at least once daily. Do not take a tub bath, sit in a hot tub or go into a swimming pool until after your first recheck in the office. SPECIAL CARE INSTRUCTIONS: VERY IMPORTANT TO READ AND REVIEW A. Your surgical incision has been closed with a cosmetic suture under the skin that will dissolve in about 6 weeks. In 14 days, you can use a pair of clean scissors and cut the suture that is left outside of the skin at the ends of your incision. 1. The small skin tapes can be removed 7 days after surgery if they have not fallen off by that point. 2. You may keep the wound open to air as much as possible to promote healing after post-op day number 5 unless told otherwise by your doctor. 3. If you think the wound looks like it is becoming infected (redness or worsening drainage) and/or you are experiencing fever, chill or worsening back pain and muscle spasms, contact the office so that we may evaluate you as soon as possible. B. Complications are uncommon, but please contact us if you have any signs or symptoms of: 1. wound infection (fever higher than 102.5 degrees F, redness, separation of wound, drainage, or increasing pain from the incision) 2. blood clots in legs (pain, swelling, redness and warmth in legs) 3. urinary tract infection (fever higher than 102.5 degrees F, burning upon urination or increased frequency of urination) 4. nerve problems (inability to walk on your toes or heels, numbness, loss of bowel or bladder control) 5. any other symptoms that concern you C. Please call the office at if you have any concerns or questions about your operation or recovery. D. No smoking! Smoking drastically decreases the chance of a solid fusion. E. Do not take any anti-inflammatory medications (Indocin, Advil, Motrin, Aspirin, Naprosyn, etc.) as these may inhibit the chance of a solid fusion. Tylenol is okay to take for pain. MANAGING PAIN AFTER SPINAL SURGERY 1. Narcotic medication is intended for short-term use and will be provided for surgical pain. Surgical pain usually lasts for a period of 4-6 weeks. Narcotic medication includes Percocet, Vicodin, Darvocet, Tylenol #3 or Lortab. 2. Longer-term pain is more appropriately treated with non-narcotic medication such as Tylenol ES. 3. Muscle spasm is not appropriately treated with narcotics. Muscle relaxers such as Soma, Flexeril or Skelaxin can be used along with Tylenol ES. 4. Remember that we all live with some "aches and pains". This is not unusual or uncommon after an injury or as we get older. a. Back pain is expected and may include muscle spasms for 4 to 6 weeks after surgery. The pain should gradually improve. If the pain worsens for no apparent reason, please contact the office. b. Intermittent leg pain may also be experienced and should not be concerned about unless it worsens for no apparent reason. If so, please contact the office. 5. We will provide appropriate medication within the normal guidelines of their prescribed use. We will also be very cautious and aware of potential abuse and extended duration of patients' medication needs. a. Pain medications are for your comfort and to assist with sleep and rest so that the tissue can heal. They are not provided in order to return to normal activity and should not be used through the day. To do so or worsening pain at night can result from ongoing tissue damage and development of tolerance to the prescribed medicine. 6. Please allow 2-3 days to process refills. Prescriptions will not be mailed but must be picked up at the office. FOLLOW UP VISIT: Keep your scheduled follow-up appointment. Any questions, please call the office at . Pending Studies at Discharge: No Stand-Alone Forms: My [employer], Smoking Cessation Medications and DC Order Prescriptions: New tramadol 50 mg tablet 50 mg PO Q6H PRN (Reason: pain, moderate) Qty: 30 0RF oxycodone 5 mg tablet 5 mg PO Q6H PRN (Reason: pain, severe) Qty: 30 0RF Continued tramadol 50 mg tablet 50 mg PO TID Qty: 90 0RF diclofenac sodium [Voltaren Arthritis Pain] 1 % gel 2 g topical QID Rx Instructions: apply to single elbow, wrist or hand; for hand includes palm/fingers/back of hand nortriptyline 10 mg capsule 20 mg PO HS Qty: 180 3RF acetaminophen 500 mg Tablet 500 mg PO Q6H PRN (Reason: Pain) gabapentin 300 mg Capsule 300 mg PO TID melatonin 10 mg Tablet 10 mg PO HS Medical Marijuana 1 dose PO HS PRN (Reason: Pain) Rx Instructions: does not routinely use cholecalciferol (vitamin D3) [Vitamin D3] 25 mcg (1,000 unit) Tablet 25 mcg PO QAM meloxicam 7.5 mg tablet 7.5 mg PO QAM Discharge Orders: Discharge Order (Routine); Ordered 05/23/22 Ordered By: Raji Mock Admission Data Admit Date/Time: 05/21/22 12:59 Attending Provider: Raji Mock Admit Provider: Raji Mock Primary Care Provider: Herbert Martinez Other Providers: Argentina Campo ; Delroy Mariano
[2022-05-23] MEDS: dexAMETHasone 6 MG in SYRINGE 0 ML IV SCH (09:02)
[2022-05-23] MEDS: CYANOCOBALAMIN (B-12) 500 MCG TABLET PO SCH (09:10)
[2022-05-23] MEDS: THIAMINE HCL 100 MG TAB PO SCH (09:10)
[2022-05-23] MEDS: GABAPENTIN 300 MG CAP PO SCH (09:10)
[2022-05-23] MEDS: CHOLECALCIFEROL 1,000 UNITS 25 MCG TAB PO SCH (09:10)
[2022-05-23] MEDS: FOLIC ACID 400 MCG TAB PO SCH (09:10)
[2022-05-23 09:27] LABS: Basophils # (auto) 0.02 K/uL (0-0.2); Basophils % (auto) 0.3 %; Eosinophils # (auto) 0.04 K/uL (0-0.50); Eosinophils % (auto) 0.6 %; Hematocrit (blood only) 24.5 % (42.0-52.0); Hemoglobin 8.3 g/dl (14.0-18.0); Immature Granulocytes # (auto) 0.02 K/uL (0.01-0.20); Immature Granulocytes % (auto) 0.3 %; Lymphocytes % (auto) 25.8 %; Mean Corpuscular Hemoglobin 30.6 pg (25.0-34.0); Mean Corpuscular Hgb Conc 33.9 g/dL (32.0-36.0); Mean Corpuscular Volume 90.4 fL (80.0-100.0); Mean Platelet Volume 9.3 fL (9.4-12.4); Monocytes # (auto) 0.56 K/uL (0.11-0.59); Monocytes % (auto) 8.5 %; Neutrophils # (auto) 4.26 K/uL (1.40-6.50); Neutrophils % (auto) 64.5 %; Platelet Count 224 K/uL (130-400); RDW Standard Deviation 42.8 fL (36.4-46.3); Red Blood Count 2.71 M/uL (4.70-6.10)
--- NOTE | 2022-05-23 10:31 | Communication Note ---
Date of Service: May 23, 2022 Patient discharged prior to being seen. Hgb to 8.3, NICOLLE output slowed and removed this morning per nursing. They report patient without lightheaded/dizziness, was walking the unit this morning, doing great. Iron studies w/o acute iron deficiency anemia. TSH wnl. No B12/folate checked as on supplementation already given his alcohol use. Rxs for such sent at discharge. To follow up with PCP for further work-up of anemia.
== END 2022-05-23 10:25 | disposition home or self-care (01) | DRG 454 ==
LOC: ASU 08:22 → 3E 12:59 → 2N 17:00